=== PATIENT | male | born 1945 | race Caucasian/White ===

== ENCOUNTER → 2016-11-07 | Day surgery (SDC) | payer MEDICARE ==
[~2016-11-07] VITALS: Ht 180.3 cm; Wt 112.0 kg
[~2016-11-07] MED LIST: ASPI1TAB69 PO; BETA30P2 INTRA2; BUPR1TAB29 PO; CARV6.252 PO; CHLO25TA2 PO; CITA20TA4 PO; COZA100T PO; CYCLOPENTOLATE HCL 1% OPHT SOLN 2 ML BTL ONE; FLURBIPROFEN 0.03% OPHT SOLN 2.5 ML BTL ONE; HYALURONIDASE/LIDOCAINE/EPINEPHRINE/BUPIVACAINE 6 ML SYR ONE; HYDR-3288 PO; HYDR25TA5 PO; LIDOCAINE HCL 1% 30 ML VIAL ONE; OMEP20CA2 PO; PHENYLEPHRINE HCL 10% OPTH SOLN 5 ML BTL ONE; PROPARACAINE HCL 0.5% OPHT SOLN 15 ML BTL ONE; PROPOFOL 200 MG/20 ML AMP ONE; SIMV20TA PO; SODIUM CHLORID 0.9% 500 ML INJ 500 ML ONE; TEMA15CA PO; TEST1GEL5 TOPICAL; TOBRAMYCIN/DEXAMETHASONE OPTH OINT 3.5 GM TUBE ONE; TROPICAMIDE 1% OPHT SOLN 15 ML BTL ONE
[2016-11-07 08:50] VITALS: BP 140/88; PULSE 77; RESP 20; TEMP 98.2; O2SAT 94
[2016-11-07 09:16] VITALS: PULSE 71
[2016-11-07 09:43] VITALS: PULSE 68
[2016-11-07 10:15] VITALS: TEMP 97.9
[2016-11-07 10:35] VITALS: BP 140/76; PULSE 74; RESP 16; O2SAT 95
--- NOTE | 2016-11-11 10:30 | MP ---
cc: JOSH ZAVALA M.D. DATE OF SURGERY: 11/07/2016 [facility] [id number] PREOPERATIVE DIAGNOSIS Visually significant cataract, left eye. POSTOPERATIVE DIAGNOSIS Visually significant cataract, left eye. OPERATION Phacoemulsification with posterior chamber lens implantation, left eye. SURGEON Josh Zavala MD ANESTHESIA Retrobulbar with MAC. COMPLICATIONS None. PROCEDURE After informed consent was obtained, the patient was brought into the operative suite and placed on appropriate monitors by the Anesthesia Service. The patient had received a prior retrobulbar injection of local anesthetic by the Anesthesia Service in the holding area. The patient's operative eye was then prepped and draped in the usual sterile fashion. A wire lid speculum was placed. A paracentesis incision was made in the peripheral cornea with a 1 mm vinod keratome. The anterior chamber was filled with viscoelastic. The anterior chamber was then entered through a stepped, clear corneal incision using a sharp 3 mm vinod keratome. A circular tear capsulorrhexis was then made with a bent needle cystitome. Following hydrodissection of the lens nucleus with balanced saline, phacoemulsification of the nucleus was performed using a modified chopping technique. The remaining cortex was removed with irrigation/aspiration. The prior two procedures were both performed using the handpieces of the [employer] phaco unit. The capsular bag was then filled with viscoelastic. The intraocular lens was then injected into the capsular bag and positioned. The type of intraocular lens and its power can be found elsewhere in this chart. The remaining viscoelastic was then removed from the anterior chamber with the IA handpiece. The anterior chamber was reformed with balanced saline. The wound was then closed securely with stromal hydration. It was found to be watertight to an intraocular pressure of at least 30 mmHg by palpation. A small amount of balanced salt solution was then removed through the paracentesis site and the intraocular pressure at the end of the case was approximately 20 by palpation. All drapes were then removed. TobraDex ointment was then placed in the eye, which was closed beneath a semi-pressure patch dressing. The patient tolerated this procedure well and left the operating room awake and alert. The patient is to follow-up in my office in the morning. MD GRETCHEN Ray/JACKELINE /10:13 AM /10:30 AM
== END | disposition home or self-care (01) ==
LOC: PHSDC 08:07
PROVIDERS: ATTEND Optometrist Occupational Vision
DX: H25.12 Age-related nuclear cataract, left eye (principal)
CPT/HCPCS: 00142; 66984; J7040; V2632

== ENCOUNTER → 2017-03-07 | Day surgery (SDC) | payer MEDICARE ==
[~2017-03-07] VITALS: Ht 180.3 cm; Wt 108.8 kg
[~2017-03-07] MED LIST changes: +ACETAMINOPHEN/HYDROcodone 325 MG/5 MG TAB PO PRN; -ASPI1TAB69 PO; +ASPI81TA11 PO; -BUPR1TAB29 PO; +BUPR1TAB70 PO; +CHLORHEXIDINE GLUCONATE 2 % 1 PACK (2 CLOTHS) TOPICAL PRN; +CHLORHEXIDINE GLUCONATE 4% SOLN 120 ML BTL TOPICAL SCH; -CYCLOPENTOLATE HCL 1% OPHT SOLN 2 ML BTL ONE; +DEXAMETHASONE SOD PHOS 4 MG/ML VIAL ONE; +DO NOT ADM ANY ANTICOAGULANT DRUGS PRN; +FAMOTIDINE 20 MG/2 ML VIAL ONE; -FLURBIPROFEN 0.03% OPHT SOLN 2.5 ML BTL ONE; +GENTAMICIN SULFATE 80 MG/2 ML VIAL ONE; -HYALURONIDASE/LIDOCAINE/EPINEPHRINE/BUPIVACAINE 6 ML SYR ONE; -HYDR25TA5 PO; +INSULIN HUMAN REGULAR 1,000 UNITS/10 ML VIAL SQ PRN; +LACTATED RINGER'S 1000 ML INJ 1,000 ML IV ONE; +LACTATED RINGER'S 1000 ML IV PRN; -LIDOCAINE HCL 1% 30 ML VIAL ONE; +METOPROLOL TARTRATE 25 MG TAB PO PRN; +MIDAZOLAM HCL 5 MG/5 ML VIAL ONE; +MORPHINE SULFATE 4 MG/ML INJ IV PUSH PRN; +NORC5TAB PO; +ONDANSETRON HCL 4 MG/2 ML VIAL IV PRN; +ONDANSETRON HCL 4 MG/2 ML VIAL IV PUSH ONE; -PHENYLEPHRINE HCL 10% OPTH SOLN 5 ML BTL ONE; +POVIDONE IODINE 5% (ANTISEPSIS KIT) 4 APPLICATIONS EACH NARE PRN; -PROPARACAINE HCL 0.5% OPHT SOLN 15 ML BTL ONE; +PROPOFOL 200 MG/20 ML AMP IV ONE; -PROPOFOL 200 MG/20 ML AMP ONE; -SODIUM CHLORID 0.9% 500 ML INJ 500 ML ONE; +SODIUM CHLORID 0.9% 500 ML IV PRN; +SODIUM CHLORIDE 0.9% FLUSH 10 ML FLUSH IV FLUSH PRN; +SODIUM CHLORIDE 0.9% FLUSH 10 ML FLUSH IV FLUSH SCH; -TEMA15CA PO; -TEST1GEL5 TOPICAL; -TOBRAMYCIN/DEXAMETHASONE OPTH OINT 3.5 GM TUBE ONE; -TROPICAMIDE 1% OPHT SOLN 15 ML BTL ONE; +VANCOMYCIN HCL 1000 MG VIAL ONE; +ceFAZolin 2 GM PREMIX 50 ML ONE; +ePHEDrine/NS 25 MG/5 ML SYR IV ONE
[2017-03-07 06:24] VITALS: BP 125/71; PULSE 74; RESP 16; TEMP 98; O2SAT 96
--- NOTE | 2017-03-07 07:02 | EKG ---
Date Performed: 03/07/2017 Time Performed: 06:19:49 PTAGE: 72 years EKG: Sinus rhythm MARKED LEFT AXIS DEVIATION LEFT BUNDLE BRANCH BLOCK ABNORMAL ECG No significant change from prior el ectrocardiogram. PREVIOUS TRACING : 01/02/2016 07.55 DOCTOR: Ranulfo Costa Interpretating Date/Time 03/07/2017 07:02:17
--- NOTE | 2017-03-07 08:53 | PD.OP ---
cc: Josh Morris MD Operative Report Date of Surgery: Mar 07, 2017 Preoperative Diagnosis: Painful hardware left foot Postoperative Diagnosis: Procedure: Removal deep hardware left foot Anesthesia: Gen. Surgeon: Josh Morris Avionics Integration Engineer(s): LUIS ALBERTO Jon PA-C Operation and Findings: Kulwant is known to me from previous midfoot fracture dislocation treated with open reduction internal fixation. He developed pain around one of the screws. Informed consent was obtained for hardware removal. Operative site was marked. He was brought to the operating room. He was given IV sedation and general anesthesia. He received IV antibiotics. Timeout procedure was performed. Left foot and leg were prepped with alcohol followed by Hibiclens and draped usual sterile fashion. Procedure began with localization of the prominent screw. The screw head was palpated as well as visualized under fluoroscopy. A 5 mm incision was made directly over the screw head. Scar tissue was incised around the screw. A screwdriver was now used to remove the screw. Fluoroscopy confirmed removal of appropriate screw. The remainder of the hardware was in good position with no significant prominence. Incision was closed with 3-0 nylon. Dressings were applied. Patient was awakened and transferred to recovery room in stable condition. Josh Morris MD Mar 07, 2017 08:53
[2017-03-07 10:15] VITALS: BP 165/90; PULSE 69; RESP 18; TEMP 97; O2SAT 94
--- NOTE | 2017-03-07 11:17 | RADRPT ---
EXAM DATE/TIME: 03/07/2017 08:43 [facility] COMPARISON: FOOT LEFT COMPLETE ([id number]), January 02, 2016, 10:27. INDICATIONS : Left foot hardware removal. MEDICAL HISTORY : None. SURGICAL HISTORY : None. ENCOUNTER: Initial ACUITY: 1 day PAIN SCORE: Non-responsive. LOCATION: Left Foot. FINDINGS: Side plate and multiple screws traverse the first and second tarsometatarsal joints with excellent an atomical alignment of the fracture fragments. CONCLUSION: Intact postsurgical changes for technique. Geovanni Hawkins MD on March 07, 2017 at 11:15 Board Certified Radiologist. This report was verified electronically.
== END | disposition home or self-care (01) ==
LOC: HSDC 05:49
PROVIDERS: ATTEND Orthopaedic Surgery Orthopaedic Trauma
DX: T84.84XA Pain due to internal orthopedic prosthetic devices, implants and grafts, initial encounter (principal); S92.902D Unspecified fracture of left foot, subsequent encounter for fracture with routine healing; I10 Essential (primary) hypertension; G47.30 Sleep apnea, unspecified; E78.5 Hyperlipidemia, unspecified; Z01.810 Encounter for preprocedural cardiovascular examination
CPT/HCPCS: 01480; 20680; 73620; 76000; 93005; J0690; J1100; J1580; J2250; J2405; J3010; J3370; J7120